=== PATIENT | female | born 1945 | race Caucasian/White ===

== ENCOUNTER 2021-10-15 09:02 | Outpatient (REF) | payer MEDICARE, SELFPAY ==
[2021-10-15 09:59] LABS: Hematocrit 42.4 % (37.0-47.0); Hemoglobin 14.5 g/dl (12.0-16.0); Mean Corpuscular HGB Conc 34.2 g/dl (31.0-35.0); Mean Corpuscular Hemoglobin 31.9 pg (27.0-33.0); Mean Corpuscular Volume 93.2 fL (80.0-98.0); Mean Platelet Volume 10.8 fL (9.4-12.3); Platelet Count 230 X10*3/uL (160-400); Red Blood Count 4.55 X10*6/uL (4.20-5.50); White Blood Count 7.4 X10*3/uL (4.8-10.8)
[2021-10-15 10:30] LABS: Alanine Aminotransferase 28 U/L (0-31); Albumin Level 4.2 g/dL (3.5-5.0); Alkaline Phosphatase 44 U/L (39-117); Anion Gap 12 (12-20); Aspartate Amino Transferase 25 U/L (5-31); Bilirubin Total 0.5 mg/dL (0.0-1.0); Blood Urea Nitrogen 16 mg/dL (9-16); Calcium 9.7 mg/dL (8.4-10.2); Carbon Dioxide 29 mmol/L (22-29); Chloride 104 mmol/L (96-108); Cholesterol 246 mg/dL; Estimated Glomerular Filt Rate > 60; Glucose Random 143 mg/dL (60-115); HDL Cholesterol 48 mg/dL; Iron 219 mcg/dL (30-160); LDL Cholesterol Calculated 157 mg/dl; Percent Iron Saturation 79 % (15-50); Sodium 141 mmol/L (135-145); Total Iron Binding Capacity 277 mcg/dL (228-428); Total Protein 7.2 g/dL (6.5-8.0); Triglycerides 206 mg/dL; Unsaturated Iron Binding 58 ug/dL
[2021-10-15 10:53] LABS: Ferritin 219 ng/mL (10-250); TSH reflex Free T4 2.04 uIU/mL (0.32-4.0)
[2021-10-15 11:20] LABS: Creatinine Urine 197.32 mg/dL; Microalbum/Creatinine Ratio Ur 9.1 ug/mg cr
== END 2021-10-15 09:03 | disposition home or self-care (01) ==
LOC: HO.LAB 09:02
PROVIDERS: PCP Internal Medicine; Visit Provider Internal Medicine
DX: Z00.00 Encounter for general adult medical examination without abnormal findings (principal); E11.9 Type 2 diabetes mellitus without complications; R53.83 Other fatigue; E83.110 Hereditary hemochromatosis
CPT/HCPCS: 36415; 80053; 80061; 82043; 82728; 83540; 84443; 85027

== ENCOUNTER 2021-11-15 15:51 | Outpatient (REF) | payer MEDICARE, SELFPAY ==
--- NOTE | ~2021-11-15 | MM_ITS ---
EXAMINATION: MM SCREENING DIGITAL BREAST TOMOSYNTHESIS, BILATERAL CLINICAL INFORMATION: Screening. Asymptomatic. The lifetime risk of breast cancer based on the Tyrer-Cuzick Model is 3.4%. COMPARISON: Mammography: March 05, 2020 and studies dating back to April 15, 2008 TECHNIQUE: Digital breast tomosynthesis is performed in both the craniocaudal and mediolateral oblique views along with computer-aided detection (CAD). Synthesized 2D images are generated from the tomosynthesis. FINDINGS: There are scattered areas of fibroglandular density (ACR BI-RADS breast composition Category b). There are no significant masses, abnormal calcifications, or other abnormalities. MM/MM tomosynthesis screening BI IMPRESSION: There are no significant changes from prior study. ASSESSMENT: BI-RADS 1: Negative RECOMMENDATION: Routine annual mammography screening. This patient's information was entered into a reminder system with a target due date for their next mammogram.
== END 2021-11-15 15:52 | disposition home or self-care (01) ==
LOC: HO.MAMMO 15:51
PROVIDERS: PCP Internal Medicine; Visit Provider Internal Medicine
DX: Z12.31 Encounter for screening mammogram for malignant neoplasm of breast (principal)
CPT/HCPCS: 77063; 77067

== ENCOUNTER 2021-11-22 18:09 | Emergency (ER) | payer MEDICARE, SELFPAY ==
--- NOTE | ~2021-11-22 | XR_ITS ---
EXAMINATION: XR SHOULDER, RIGHT CLINICAL INFORMATION: Fell, pain. COMPARISON: None TECHNIQUE: Three views of the right shoulder. FINDINGS: There is an impacted and mildly displaced fracture of the right humeral neck. The humeral head remains well-seated in the glenoid. The AC joint is intact except for degenerative osteoarthritis. The visualized right-sided clavicle and right-sided ribs are within normal limits. There is nonspecific interstitial thickening in the imaged right lung. There is soft tissue swelling around the fracture site. XR/XR shoulder RT min 2V IMPRESSION: Right humeral neck fracture as above.
--- NOTE | ~2021-11-22 | XR_ITS ---
EXAMINATION: XR ELBOW, RIGHT CLINICAL INFORMATION: Fall, pain. COMPARISON: None TECHNIQUE: AP, lateral, and oblique views of the right elbow. FINDINGS: No acute fractures or malalignment. Multifocal enthesophytes and degenerative osteoarthritis. No unexpected radiopaque foreign bodies. Evaluation of joint effusions is somewhat suboptimal due to limited crosstable lateral view. XR/XR elbow RT 2V IMPRESSION: No acute fractures or malalignment.
[2021-11-22 18:41] VITALS: BP 153/69; PULSE 75; RESP 18; TEMP 36.9; O2SAT 93; BMI 32.9
--- NOTE | 2021-11-22 19:59 | PC.NURSE ---
patient transported from waiting room to [facility] with use of wheel chair . transferred by 1 assist to bed , guarding left arm . required assitance changing into a amanda . daughter at bedside
--- NOTE | 2021-11-22 20:00 | ED_ITS ---
HPI - Extremity Problem General Chief complaint: Extremity Injury, Upper Stated complaint: fell downstairs fell on right arm Source: patient Mode of arrival: ambulatory Limitations: no limitations History of Present Illness HPI Narrative: 76-year-old female presents after a fall injury. Patient slipped down 1 step going into her basement and landed on her right arm. Is complaining of right humerus pain. Patient did not hit her head or lose consciousness. Did not experience any prodromal events prior to the fall. MD Complaint: extremity pain Onset (ago): hour(s) (Within the hour of arrival) Pain Consistency: constant Location: right and upper extremity Severity scale (1-10): 8 Quality: aching Radiation: proximal Relieving factors: cold therapy and immobilization Exacerbating factors: range of motion and palpation Associated symptoms: denies other symptoms Related Data Previous Rx's Medication Instructions Recorded oxycodone 5 mg tablet 5 mg PO Q4H PRN 3 Days #18 tab 11/22/21 Allergies Allergy/AdvReac Type Severity Reaction Status Date / Time No Known Allergies Allergy Unverified 05/14/20 16:48 Review of Systems Review of Systems: Constitutional: No Fever, No Chills ENT/Mouth: No Ear Pain, No Hoarseness, No sore throat Eyes: No Eye Pain, No Swelling, No Redness, No Foreign Body Cardiovascular: No Chest Pain, No SOB Respiratory: No Cough, No Dyspnea Gastrointestinal: No Nausea, No Vomiting, No Diarrhea, No abdominal Pain Genitourinary: No Dysuria, No Hematuria Musculoskeletal: positive right arm pain, No Myalgias, No Joint Swelling Skin: No Skin lacerations, No rash Neuro: No Weakness, No Numbness, No Paresthesias, No Loss of Consciousness, No Dizziness, No Headache Psych: No Anxiety/Panic, No Depression Heme/Lymph: no easy bruising, no Lymphadenopathy Endocrine: No Polyuria, No Polydipsia Yes all other systems are reviewed and are negative [facility] Past Medical History Attestation statement: The following information was validated with the patient. Source: old records reviewed Social History Social History Advance Directives: No Advance Directives Information Provided: No Physical Exam Vital Signs: Vital Signs: Last Vital Signs Temp 98.4 F 11/22/21 18:41 Pulse 75 11/22/21 18:41 Resp 18 11/22/21 18:41 BP 153/69 H 11/22/21 18:41 Pulse Ox 93 11/22/21 18:41 BMI result Body Mass Index 32.9 Appearance: Alert. Oriented X3. Mild distress. Eyes: Pupils equal, round and reactive to light. ENT: Pharynx normal. Neck: Normal inspection. Neck supple. CVS: Normal heart rate and rhythm. Pulses normal. Respiratory: No respiratory distress. Breath sounds normal. Abdomen: Soft and nontender. Skin: Skin warm and dry. Normal skin color. Normal skin turgor. Extremities: Brisk capillary refill equal pulses to the extremities. Has full range of motion to digits, wrist and elbow, has pain in the upper arm when moving or squeezing. no visible deformity. No tenderness to the clavicle. Decreased right shoulder range of motion Neuro: No motor deficit. No sensory deficit. Cranial nerves 2-12 intact. Course Course Course Narrative: 76-year-old female presents with a FOOSH injury. Patient slipped down 1 step, does not report any head injury or prodromal symptoms. No crepitus or joint deformity noted to extremities. No chest wall tenderness to palpation. Right h umerus is tender, patient does have tenderness on range of motion to the right upper extremity. Will order x-rays. Will update Tdap vaccine and give oxycodone 5 mg for pain management. 21:56 x-rays indicate right humeral head fracture. Discussion with Dr. Hernandez. Plan of care is for patient follow-up in the office. Will sling and swathe. Patient will go home to her daughter's home.Patient verbalized understanding of and agrees to plan of care to discharge home. Verbalized understanding of signs and symptoms indicating need for emergent intervention Consultations Consultation #1: Mary Time: 21:56 MDM - Extremity (Nontraumatic) MDM Narrative Medical decision making narrative: Fracture, dislocation, tendon injury Medical Records Attestation: I reviewed the patient's medical records. Imaging Data Shoulder humerus and elbow x-ray: Attestation: I personally reviewed and interpreted this imaging study as follows: Radiologist's impression: EXAMINATION: XR SHOULDER, RIGHT CLINICAL INFORMATION: Fell, pain.? COMPARISON: None? TECHNIQUE: Three views of the right shoulder. FINDINGS: There is an impacted and mildly displaced fracture of the right humeral neck. The humeral head remains well-seated in the glenoid. The AC joint is intact except for degenerative osteoarthritis. The visualized right-sided clavicle and right-sided ribs are within normal limits. There is nonspecific interstitial thickening in the imaged right lung. There is soft tissue swelling around the fracture site.? XR/XR shoulder RT min 2V IMPRESSION: Right humeral neck fracture as above. EXAMINATION: XR ELBOW, RIGHT CLINICAL INFORMATION: Fall, pain.? COMPARISON: None? TECHNIQUE: AP, lateral, and oblique views of the right elbow. FINDINGS: No acute fractures or malalignment. Multifocal enthesophytes and degenerative osteoarthritis. No unexpected radiopaque foreign bodies. Evaluation of joint effusions is somewhat suboptimal due to limited crosstable lateral view.? XR/XR elbow RT 2V IMPRESSION: No acute fractures or malalignment. Discharge Plan Discharge Clinical Impression: Fracture of head of humerus Patient Disposition: Home, Self-Care Instructions: Arm Fracture in Adults (ED), How to Use a Sling (ED) Additional Instructions: You were evaluated for injury sustained from a fall. You have a right humerus fracture. Please keep sling and swathe and place. Follow-up with orthopedics. I have referred you to Dr. Hernandez. Take oxycodone 5 mg every 4-6 hours as needed for pain management. This medication is a narcotic and has high risk for addiction and abuse. Do not drive or operate machinery while taking this medication. This medication can delay reaction time, increased risk for falls, and cause drowsiness. This medication is also constipating. Please drink plenty of fluids and use Colace and or MiraLax as needed to help soften stools. Thank you for choosing this emergency department for evaluation. Please follow-up with primary care physician as needed. Return to the emergency department for any new, concerning, or worsening symptoms. Prescriptions: New oxycodone 5 mg tablet 5 mg PO Q4H PRN (Reason: pain) 3 Days Qty: 18 0RF Rx Instructions: Right humeral head fracture. Referrals: Edil Hernandez MD [Physician] - 2 days (Right humeral head fracture)
[2021-11-22] MEDS: oxyCODONE HCl Immed Release 5 MG TABLET PO ×2 (20:11→22:17)
[2021-11-22] MEDS: Diphth,Pertus(ACell),Tet Adult 0.5 ML SYRINGE IM (20:11)
== END 2021-11-22 22:33 | disposition home or self-care (01) ==
PROVIDERS: Emergency Provider Emergency Medicine; PCP Internal Medicine
DX: S42.291A Other displaced fracture of upper end of right humerus, initial encounter for closed fracture (principal); W10.8XXA Fall (on) (from) other stairs and steps, initial encounter; Y93.89 Activity, other specified; Y92.018 Other place in single-family (private) house as the place of occurrence of the external cause; Y99.9 Unspecified external cause status
CPT/HCPCS: 73030; 73070; 90471; 90715; 99284

== ENCOUNTER 2022-01-21 09:16 | Outpatient (REF) | payer MEDICARE, SELFPAY ==
[2022-01-21 09:54] LABS: MANUAL DIFF FLAG NO
[2022-01-21 09:56] LABS: Basophils Absolute Auto 0.1 X10*3/uL (0.0-0.2); Basophils Percent Auto 0.7 % (0-2); Eosinophils Absolute Auto 0.4 X10*3/uL (0.0-0.4); Eosinophils Percent Auto 5.8 % (0-4); Hematocrit 39.5 % (37.0-47.0); Hemoglobin 13.8 g/dl (12.0-16.0); Imm Gran Abs Auto 0.02 X10*3/uL (0.00-0.03); Imm Gran Pct Auto 0.3 % (0.0-0.4); Lymphocytes Absolute Auto 2.7 X10*3/uL (1.2-4.9); Lymphocytes Percent Auto 36.4 % (20-40); Mean Corpuscular HGB Conc 34.9 g/dl (31.0-35.0); Mean Corpuscular Hemoglobin 32.2 pg (27.0-33.0); Mean Corpuscular Volume 92.1 fL (80.0-98.0); Mean Platelet Volume 10.4 fL (9.4-12.3); Monocytes Absolute Auto 0.6 X10*3/uL (0.1-1.2); Monocytes Percent Auto 7.9 % (2-11); Neutrophils Absolute Auto 3.6 x10*3/uL (2.0-8.3); Neutrophils Percent Auto 48.9 % (45-73); Platelet Count 235 X10*3/uL (160-400); Red Blood Count 4.29 X10*6/uL (4.20-5.50); Red Cell Distribution Width 12.3 % (11.0-16.0); White Blood Count 7.4 X10*3/uL (4.8-10.8)
[2022-01-21 10:19] LABS: Alanine Aminotransferase 23 U/L (0-31); Albumin Level 4.2 g/dL (3.5-5.0); Alkaline Phosphatase 56 U/L (39-117); Anion Gap 13 (12-20); Aspartate Amino Transferase 23 U/L (5-31); Bilirubin Total 0.5 mg/dL (0.0-1.0); Blood Urea Nitrogen 15 mg/dL (9-16); Calcium 9.7 mg/dL (8.4-10.2); Carbon Dioxide 28 mmol/L (22-29); Chloride 104 mmol/L (96-108); Estimated Glomerular Filt Rate > 60; Glucose Random 172 mg/dL (60-115); Iron 179 mcg/dL (30-160); Percent Iron Saturation 64 % (15-50); Potassium 3.4 mmol/L (3.3-5.1); Sodium 142 mmol/L (135-145); Total Iron Binding Capacity 279 mcg/dL (228-428); Total Protein 7.3 g/dL (6.5-8.0); Unsaturated Iron Binding 100 ug/dL
[2022-01-21 10:38] LABS: Ferritin 256 ng/mL (10-250)
== END 2022-01-21 09:17 | disposition home or self-care (01) ==
LOC: HO.BBR 09:16
PROVIDERS: Visit Provider Internal Medicine Medical Oncology
DX: E83.110 Hereditary hemochromatosis (principal)
CPT/HCPCS: 36415; 80053; 82105; 82728; 83540; 85025

== ENCOUNTER → 2022-01-21 10:35 | Outpatient (BNV) | payer MEDICARE, SELFPAY | PROVIDERS: PCP Internal Medicine; Visit Provider Internal Medicine Medical Oncology | DX: E83.119 Hemochromatosis, unspecified (principal) | CPT/HCPCS: 99204; 99213 ==

== ENCOUNTER 2022-04-04 07:45 | Outpatient (REF) | payer MEDICARE, SELFPAY ==
[2022-04-04 08:47] LABS: Alanine Aminotransferase 23 U/L (0-31); Albumin Level 4.3 g/dL (3.5-5.0); Alkaline Phosphatase 45 U/L (39-117); Anion Gap 15 (12-20); Aspartate Amino Transferase 23 U/L (5-31); Bilirubin Total 0.7 mg/dL (0.0-1.0); Blood Urea Nitrogen 16 mg/dL (9-16); Calcium 9.2 mg/dL (8.4-10.2); Carbon Dioxide 25 mmol/L (22-29); Chloride 103 mmol/L (96-108); Cholesterol 150 mg/dL; Estimated Glomerular Filt Rate > 60; Glucose Random 152 mg/dL (60-115); HDL Cholesterol 44 mg/dL; LDL Cholesterol Calculated 79 mg/dl; Potassium 3.8 mmol/L (3.3-5.1); Sodium 139 mmol/L (135-145); Total Protein 7.4 g/dL (6.5-8.0); Triglycerides 135 mg/dL
[2022-04-04 09:10] LABS: Ferritin 178 ng/mL (10-250)
== END 2022-04-04 07:46 | disposition home or self-care (01) ==
LOC: HO.LAB 07:45
PROVIDERS: PCP Internal Medicine; Visit Provider Internal Medicine
DX: Z00.00 Encounter for general adult medical examination without abnormal findings (principal); E78.00 Pure hypercholesterolemia, unspecified
CPT/HCPCS: 36415; 80053; 80061; 82728

== ENCOUNTER 2022-06-30 11:29 | Outpatient (REF) | payer MEDICARE, SELFPAY ==
[2022-06-30 11:52] LABS: MANUAL DIFF FLAG NO
[2022-06-30 11:55] LABS: Basophils Absolute Auto 0.1 X10*3/uL (0.0-0.2); Basophils Percent Auto 0.9 % (0-2); Eosinophils Absolute Auto 0.4 X10*3/uL (0.0-0.4); Eosinophils Percent Auto 3.9 % (0-4); Hematocrit 41.1 % (37.0-47.0); Hemoglobin 14.2 g/dl (12.0-16.0); Imm Gran Abs Auto 0.02 X10*3/uL (0.00-0.03); Imm Gran Pct Auto 0.2 % (0.0-0.4); Lymphocytes Absolute Auto 3.1 X10*3/uL (1.2-4.9); Lymphocytes Percent Auto 32.9 % (20-40); Mean Corpuscular HGB Conc 34.5 g/dl (31.0-35.0); Mean Corpuscular Hemoglobin 31.6 pg (27.0-33.0); Mean Corpuscular Volume 91.5 fL (80.0-98.0); Mean Platelet Volume 10.5 fL (9.4-12.3); Monocytes Absolute Auto 0.7 X10*3/uL (0.1-1.2); Monocytes Percent Auto 7.2 % (2-11); Neutrophils Absolute Auto 5.2 x10*3/uL (2.0-8.3); Neutrophils Percent Auto 54.9 % (45-73); Platelet Count 249 X10*3/uL (160-400); Red Blood Count 4.49 X10*6/uL (4.20-5.50); Red Cell Distribution Width 12.3 % (11.0-16.0); White Blood Count 9.4 X10*3/uL (4.8-10.8)
[2022-06-30 12:48] LABS: Alanine Aminotransferase 22 U/L (0-31); Albumin Level 4.4 g/dL (3.5-5.0); Alkaline Phosphatase 54 U/L (39-117); Anion Gap 17 (12-20); Aspartate Amino Transferase 22 U/L (5-31); Bilirubin Total 0.6 mg/dL (0.0-1.0); Blood Urea Nitrogen 18 mg/dL (9-16); Calcium 9.9 mg/dL (8.4-10.2); Carbon Dioxide 27 mmol/L (22-29); Chloride 101 mmol/L (96-108); Estimated Glomerular Filt Rate > 60; Glucose Fasting 170 mg/dL (60-99); Iron 165 mcg/dL (30-160); Percent Iron Saturation 54 % (15-50); Potassium 3.8 mmol/L (3.3-5.1); Sodium 141 mmol/L (135-145); Total Iron Binding Capacity 305 mcg/dL (228-428); Total Protein 7.6 g/dL (6.5-8.0); Unsaturated Iron Binding 140 ug/dL
[2022-06-30 13:08] LABS: Ferritin 226 ng/mL (10-250)
== END 2022-06-30 11:30 | disposition home or self-care (01) ==
LOC: HO.BBR 11:29
PROVIDERS: Visit Provider Internal Medicine Medical Oncology
DX: E83.110 Hereditary hemochromatosis (principal)
CPT/HCPCS: 36415; 80053; 82728; 83540; 85025

== ENCOUNTER 2023-05-10 11:00 | Outpatient (REF) | payer MEDICARE, SELFPAY ==
[2023-05-12 11:49] LABS: Alpha Fetoprotein 2.7 ng/mL
== END 2023-05-10 11:01 | disposition home or self-care (01) ==
LOC: HO.BBR 11:00
PROVIDERS: PCP Internal Medicine; Visit Provider Internal Medicine Medical Oncology
DX: E83.110 Hereditary hemochromatosis (principal)
CPT/HCPCS: 36415; 82105

== ENCOUNTER 2023-06-29 10:55 | Outpatient (REF) | payer MEDICARE, SELFPAY | END 2023-06-29 10:56 | disposition home or self-care (01) | LOC: HO.BBR 10:55 | PROVIDERS: Visit Provider Internal Medicine Medical Oncology | DX: Z13.89 Encounter for screening for other disorder (principal) ==

== ENCOUNTER 2023-08-01 11:19 | Outpatient (REF) | payer MEDICARE, SELFPAY | END 2023-08-01 11:20 | disposition home or self-care (01) | LOC: HO.BBR 11:19 | PROVIDERS: PCP Internal Medicine; Visit Provider Internal Medicine Medical Oncology | DX: Z13.89 Encounter for screening for other disorder (principal) ==

== ENCOUNTER 2023-09-01 11:28 | Outpatient (REF) | payer MEDICARE, SELFPAY | END 2023-09-01 11:29 | disposition home or self-care (01) | LOC: HO.BBR 11:28 | PROVIDERS: PCP Internal Medicine; Visit Provider Internal Medicine Medical Oncology | DX: Z13.89 Encounter for screening for other disorder (principal) ==

== ENCOUNTER 2024-03-08 10:17 | Outpatient (REF) | payer MEDICARE, SELFPAY ==
[2024-03-08 10:43] LABS: MANUAL DIFF FLAG NO
[2024-03-08 11:57] LABS: Basophils Absolute Auto 0.1 X10*3/uL (0.0-0.2); Basophils Percent Auto 0.8 % (0-2); Eosinophils Absolute Auto 0.3 X10*3/uL (0.0-0.4); Eosinophils Percent Auto 3.9 % (0-4); Hematocrit 39.7 % (37.0-47.0); Hemoglobin 13.8 g/dl (12.0-16.0); Imm Gran Abs Auto 0.03 X10*3/uL (0.00-0.03); Imm Gran Pct Auto 0.4 % (0.0-0.4); Lymphocytes Absolute Auto 2.9 X10*3/uL (1.2-4.9); Lymphocytes Percent Auto 35.2 % (20-40); Mean Corpuscular HGB Conc 34.8 g/dl (31.0-35.0); Mean Corpuscular Hemoglobin 31.9 pg (27.0-33.0); Mean Corpuscular Volume 91.9 fL (80.0-98.0); Mean Platelet Volume 11.2 fL (9.4-12.3); Monocytes Absolute Auto 0.6 X10*3/uL (0.1-1.2); Monocytes Percent Auto 7.3 % (2-11); Neutrophils Absolute Auto 4.3 x10*3/uL (2.0-8.3); Neutrophils Percent Auto 52.4 % (45-73); Platelet Count 237 X10*3/uL (160-400); Red Blood Count 4.32 X10*6/uL (4.20-5.50); Red Cell Distribution Width 12.5 % (11.0-16.0); White Blood Count 8.3 X10*3/uL (4.8-10.8)
[2024-03-08 12:03] LABS: Estimated Average Glucose 163 mg/dL; Hemoglobin A1c % 7.3 % (<6.0)
[2024-03-08 12:31] LABS: Microalbum/Creatinine Ratio Ur 11.9 ug/mg cr (<30)
[2024-03-08 12:42] LABS: Alanine Aminotransferase 17 U/L (0-31); Albumin Level 4.1 g/dL (3.5-5.0); Alkaline Phosphatase 48 U/L (39-117); Anion Gap 12 (12-20); Aspartate Amino Transferase 18 U/L (5-31); Bilirubin Total 0.6 mg/dL (0.0-1.0); Blood Urea Nitrogen 23 mg/dL (9-16); Calcium 9.7 mg/dL (8.4-10.2); Carbon Dioxide 29 mmol/L (22-29); Chloride 104 mmol/L (96-108); Cholesterol 160 mg/dL (<200); Estimated Glomerular Filt Rate > 60; Glucose Random 161 mg/dL (60-115); Iron 195 mcg/dL (30-160); Percent Iron Saturation 72 % (15-50); Potassium 3.5 mmol/L (3.3-5.1); Sodium 141 mmol/L (135-145); Total Iron Binding Capacity 272 mcg/dL (228-428); Total Protein 7.3 g/dL (6.5-8.0); Unsaturated Iron Binding 77 ug/dL
[2024-03-08 12:56] LABS: Ferritin 85 ng/mL (10-250)
== END 2024-03-08 10:18 | disposition home or self-care (01) ==
LOC: HO.LAB 10:17
PROVIDERS: PCP Internal Medicine; Visit Provider Internal Medicine
DX: E11.9 Type 2 diabetes mellitus without complications (principal); I10 Essential (primary) hypertension; E83.110 Hereditary hemochromatosis; E78.2 Mixed hyperlipidemia
CPT/HCPCS: 36415; 80053; 82043; 82465; 82570; 82728; 83036; 83540; 85025

== ENCOUNTER 2024-06-21 11:05 | Outpatient (REF) | payer MEDICARE, SELFPAY | END 2024-06-21 11:06 | disposition home or self-care (01) | LOC: HO.BBR 11:05 | PROVIDERS: PCP Internal Medicine; Visit Provider Internal Medicine Medical Oncology | DX: Z13.89 Encounter for screening for other disorder (principal) ==

== ENCOUNTER 2024-08-29 11:17 | Outpatient (REF) | payer MEDICARE, SELFPAY ==
[2024-08-29 11:27] LABS: MANUAL DIFF FLAG NO
[2024-08-29 11:29] LABS: Basophils Absolute Auto 0.1 X10*3/uL (0.0-0.2); Basophils Percent Auto 0.9 % (0-2); Eosinophils Absolute Auto 0.4 X10*3/uL (0.0-0.4); Eosinophils Percent Auto 4.2 % (0-4); Hematocrit 41.6 % (37.0-47.0); Hemoglobin 14.5 g/dl (12.0-16.0); Imm Gran Abs Auto 0.03 X10*3/uL (0.00-0.03); Imm Gran Pct Auto 0.3 % (0.0-0.4); Lymphocytes Absolute Auto 3.3 X10*3/uL (1.2-4.9); Mean Corpuscular HGB Conc 34.9 g/dl (31.0-35.0); Mean Corpuscular Hemoglobin 32.2 pg (27.0-33.0); Mean Corpuscular Volume 92.4 fL (80.0-98.0); Mean Platelet Volume 10.4 fL (9.4-12.3); Monocytes Absolute Auto 0.6 X10*3/uL (0.1-1.2); Monocytes Percent Auto 6.5 % (2-11); Neutrophils Absolute Auto 4.6 x10*3/uL (2.0-8.3); Neutrophils Percent Auto 51.1 % (45-73); Platelet Count 255 X10*3/uL (160-400); Red Cell Distribution Width 12.1 % (11.0-16.0)
[2024-08-29 12:04] LABS: Iron 152 mcg/dL (30-160); Percent Iron Saturation 53 % (15-50); Total Iron Binding Capacity 286 mcg/dL (228-428); Unsaturated Iron Binding 134 ug/dL
[2024-08-29 12:20] LABS: Ferritin 68 ng/mL (10-250)
== END 2024-08-29 11:18 | disposition home or self-care (01) ==
LOC: HO.BBR 11:17
PROVIDERS: PCP Internal Medicine; Visit Provider Hospitalist
DX: E83.110 Hereditary hemochromatosis (principal)
CPT/HCPCS: 36415; 82728; 83540; 85025

== ENCOUNTER 2024-10-31 10:59 | Outpatient (REF) | payer MEDICARE, SELFPAY ==
[2024-10-31 11:20] LABS: MANUAL DIFF FLAG NO
[2024-10-31 11:22] LABS: Basophils Absolute Auto 0.1 X10*3/uL (0.0-0.2); Basophils Percent Auto 0.6 % (0-2); Eosinophils Absolute Auto 0.4 X10*3/uL (0.0-0.4); Eosinophils Percent Auto 4.8 % (0-4); Hematocrit 39.7 % (37.0-47.0); Hemoglobin 13.9 g/dl (12.0-16.0); Imm Gran Abs Auto 0.02 X10*3/uL (0.00-0.03); Imm Gran Pct Auto 0.2 % (0.0-0.4); Lymphocytes Absolute Auto 2.9 X10*3/uL (1.2-4.9); Mean Corpuscular Hemoglobin 32.1 pg (27.0-33.0); Mean Corpuscular Volume 91.7 fL (80.0-98.0); Mean Platelet Volume 10.9 fL (9.4-12.3); Monocytes Absolute Auto 0.6 X10*3/uL (0.1-1.2); Monocytes Percent Auto 7.5 % (2-11); Neutrophils Absolute Auto 4.3 x10*3/uL (2.0-8.3); Neutrophils Percent Auto 51.9 % (45-73); Platelet Count 206 X10*3/uL (160-400); Red Blood Count 4.33 X10*6/uL (4.20-5.50); Red Cell Distribution Width 12.2 % (11.0-16.0); White Blood Count 8.3 X10*3/uL (4.8-10.8)
[2024-10-31 12:14] LABS: Iron 142 mcg/dL (30-160); Percent Iron Saturation 48 % (15-50); Total Iron Binding Capacity 293 mcg/dL (228-428); Unsaturated Iron Binding 151 ug/dL
[2024-10-31 12:30] LABS: Ferritin 42 ng/mL (10-250)
--- OUTSIDE RECORDS SUMMARY | 2024-10-31 13:24 | XMS_ITS | Data Portability ---
Author Organization [place] - [facility], Allergy Address [address] [address] Care Team Providers Care Train Conductor Name Role Phone SARA TURPIN Primary Care Provider Assessment Encounter Date Assessment Date Assessment LastModified by Organization Details LastModified Time 09/13/2024 09/13/2024 79-year-old female presents for cerumen removal. Cerumen removed bilaterally. TMs normal to inspection. Follow-up in 6 months. [email or web address] Not available 09/13/2024 14:03:24 Plan of Treatment Reminders Order Date Submit Date Provider Last Modified By Organization Details Last Modified Time Details Appointments Establish ed 15 2024 01:00P M SHAKIR HASKINS PA-C Not available Not available Not available Lab None recorded. Referral None recorded. Procedures None recorded. Surgeries None recorded. Imaging None recorded. Medication Orders None recorded. Patient TargetsNo targets recorded. Patient InstructionsNo instructions recorded. Reason for Referral None Reported. Problems Name Problem SNOMED Code Status Onset Date Resolution Date Notes Provider Name and Address Organization Details Recorded Time Impacted cerumen of bilateral ears 22704347853 73521 Active 2022 Impacted cerumen, bilateral ; Note: Date Diagnosed : 10/26/2022 11:26 AM (H61.23) Not Available [facility] 02:48:46 Chronic pansinusi tis 68952238 Active 2022 Chronic pansinusi tis; Note: Date Diagnosed : 10/26/2022 11:26 AM (J32.4) Not Available [facility] 02:48:47 Sensorine ural hearing loss of bilateral ears 294017808 Active 2022 Sensorine ural hearing loss, bilateral ; Note: Date Diagnosed : 10/26/2022 11:34 AM (H90.3) Not Available [facility] 4 02:48:43 Bilateral disorder of Eustachia n tubes 57134898046 27231 Active 2022 Other specified disorders of Eustachia n tube, bilateral ; Note: Date Diagnosed : 10/26/2022 11:26 AM (H69.83) Not Available [facility] 4 02:48:43 Problem Notes None recorded. Procedures Surgical History Date Name Laterality Status Provider Name and Address Organization Details Recorded Time Cerumen removal without microscope bilat completed SHAKIR HASKINS PA-C [address] [place] [address],[address], [address], [place] - [facility] 09/13/2024 14:03:11 Imaging Results None recorded. Procedure Notes None recorded. Medical Equipment None Reported. Medications Name Sig Start Date Stop Date Status Note LastModified by Organization Details LastModified Time losartan 50 mg tablet TAKE 1 TABLET DAILY active Not Available Not Available No t Available atorvasta tin 40 mg tablet TAKE 1 TABLET ONCE DAILY active Not Available Not Available No t Available cilostazo l 100 mg tablet active Medicati on ID: [id number] B rand Name: cilostaz ol Send Method: E-Prescr ibed Sub s Allowed: subs OK Speci al Instruct ion: TAKE 1 TABLET BY MOUTH DAILY Me dication GenericN zachary: cilostaz ol Not Available Not Available Not Available azithromy kaycee 250 mg tablet active Medicati on ID: [id number] B rand Name: azithrom ycin Sen d Method: E-Prescr ibed Sub s Allowed: subs OK Medic ationGen ericName : azithrom ycin Not Available Not Available Not Available atenolol 25 mg tablet TAKE 1 TABLET DAILY DIRECTED active Not Available Not Available No t Available travopros t 0.004 % eye drops INSTILL 1 DROP IN EACH EYE DAILY active Not Available Not Available No t Available Flonase 50 mcg/actua tion nasal spray,avery pension 07/21 completed Medicati on ID: [id number] Pr escribed By Name: Eliugabino gonsales M.D. Bra nd Name: Flonase Send Method: E-Prescr ibed Sub s Allowed: subs OK Speci al Instruct ion: 2 spray each nostril BID Medi cationGe nericNam e: Flonase Not Available Not Available Not Available hydrochlo rothiazid e 25 mg tablet TAKE 1 TABLET EVERY MORNINGA S DIRECTED active Not Available Not Available No t Available calcipotr iene 0.005 % topical ointment active Medicati on ID: [id number] B rand Name: calcipot riene Se nd Method: E-Prescr ibed Sub s Allowed: subs OK Medic ationGen ericName : calcipot riene Not Available Not Available Not Available oxycodone 5 mg tablet active Medicati on ID: [id number] B rand Name: oxycodon e Send Method: E-Prescr ibed Sub s Allowed: subs OK Speci al Instruct ion: TAKE 1 TABLET BY MOUTH EVERY 4 HOURS NEEDED FOR PAIN FOR 3 DAYS Med icationG enericNa me: oxycodon e Not Available Not Available Not Available peg 3350-elec trolytes 236 gram-22.7 4 gram-6.74 gram-5.86 gram solution active Medicati on ID: [id number] B rand Name: peg 3350-kandi ctrolyte s Send Method: E-Prescr ibed Sub s Allowed: subs OK Speci al Instruct ion: MIX WITH WATER AND DRINK DIRECTED ON PACKAGE AND ACCORDIN G TO DIRECTIO NS FROM [facility] Medicat ionGener icName: peg 3350-kandi ctrolyte s Not Available Not Available Not Available Vitals None Recorded Social History None recorded. Functional Status None recorded. Mental Status None recorded. Family History Nothing Reported. Medical History No medical history recorded. Gynecological HistoryNo gynecological history recorded. Obstetrics History GPAL:G 0 P 0 0 0 0 Past Encounters Encounter ID Performer Location Encounter Start Date Encounter Closed Date Diagnosis/Indication Diagnosis SNOMED-CT Code Diagnosis ICD10 Code Diagnosis Note [id number] COLLEEN ROCHA MD [facility] [address] [address] 09/13/2024 13:32:06 09/13/2024 13:52:57 Impacted cerumen of bilateral ears [id number] 206958 H61.23 Sensorineu ral hearing loss of bilateral ears 244650870 H90.3 Health Concerns Section Related Observation LastModified by Organization Detai ls LastModified Time None Recorded Concern Status LastModified by Organization Details LastModified Time None Recorded Advance Directives Directive None Recorded Payers Encounter Date Sequence Insurance Name Policy Number Policy Weir Covered Member ID Weir Member ID Guarantor Name 09/13/2024 2 [place] Callie Fu [id number] Callie Fu 09/13/2024 1 [place]MED[place] PPO) [id number] Callie Fu [id number] Callie Fu Notes Date Note Type Note Provider Name and Address Organization Details Recorded Time 09/13/2024 text/html 79-year-old female presents for cerumen removal. No acute issues since her last visit. COLLEEN ROCHA MD [address] [place] [address], [id number] - [facility] 09/17/2024 08:05:14 OBGyn Episode No OBEpisode recorded.
== END 2024-10-31 11:00 | disposition home or self-care (01) ==
LOC: HO.BBR 10:59
PROVIDERS: Internal Medicine Medical Oncology; PCP Internal Medicine; Visit Provider Hospitalist
DX: E83.110 Hereditary hemochromatosis (principal)
CPT/HCPCS: 36415; 82728; 83540; 85025

== ENCOUNTER 2024-12-31 10:58 | Outpatient (REF) | payer MEDICARE, SELFPAY ==
[2024-12-31 11:18] LABS: MANUAL DIFF FLAG NO
[2024-12-31 11:20] LABS: Basophils Absolute Auto 0.1 X10*3/uL (0.0-0.2); Basophils Percent Auto 0.9 % (0-2); Eosinophils Absolute Auto 0.3 X10*3/uL (0.0-0.4); Eosinophils Percent Auto 4.1 % (0-4); Hematocrit 38.4 % (37.0-47.0); Hemoglobin 13.4 g/dl (12.0-16.0); Imm Gran Abs Auto 0.02 X10*3/uL (0.00-0.03); Imm Gran Pct Auto 0.2 % (0.0-0.4); Lymphocytes Absolute Auto 2.6 X10*3/uL (1.2-4.9); Lymphocytes Percent Auto 32.6 % (20-40); Mean Corpuscular HGB Conc 34.9 g/dl (31.0-35.0); Mean Corpuscular Hemoglobin 30.9 pg (27.0-33.0); Mean Corpuscular Volume 88.7 fL (80.0-98.0); Mean Platelet Volume 10.1 fL (9.4-12.3); Monocytes Absolute Auto 0.5 X10*3/uL (0.1-1.2); Monocytes Percent Auto 6.7 % (2-11); Neutrophils Absolute Auto 4.5 x10*3/uL (2.0-8.3); Neutrophils Percent Auto 55.5 % (45-73); Platelet Count 247 X10*3/uL (160-400); Red Blood Count 4.33 X10*6/uL (4.20-5.50); Red Cell Distribution Width 12.3 % (11.0-16.0); White Blood Count 8.1 X10*3/uL (4.8-10.8)
[2024-12-31 12:11] LABS: Iron 113 mcg/dL (30-160); Percent Iron Saturation 41 % (15-50); Total Iron Binding Capacity 276 mcg/dL (228-428); Unsaturated Iron Binding 163 ug/dL
[2024-12-31 12:20] LABS: Ferritin 37 ng/mL (10-250)
--- OUTSIDE RECORDS SUMMARY | 2024-12-31 12:41 | XMS_ITS | Data Portability ---
Author Organization [place] - [facility], Allergy Address [address] [address] Care Team Providers Care Community Leader Name Role Phone SARA TURPIN Primary Care Provider Assessment Encounter Date Assessment Date Assessment LastModified by Organization Details LastModified Time 09/13/2024 09/13/2024 79-year-old female presents for cerumen removal. Cerumen removed bilaterally. TMs normal to inspection. Follow-up in 6 months. [email or web address] Not available 09/13/2024 14:03:24 Plan of Treatment [...] Recorded Time Impacted cerumen of bilateral ears 67779127395 04900 Active 2022 Impacted cerumen, bilateral ; Note: Date Diagnosed : 10/26/2022 11:26 AM (H61.23) Not [facility] 02:48:46 Chronic pansinusi tis 43148125 Active 2022 Chronic pansinusi tis; Note: Date Diagnosed : 10/26/2022 11:26 AM (J32.4) Not [facility] 02:48:47 Sensorine ural hearing loss of bilateral ears 242262267 Active 2022 Sensorine ural hearing loss, bilateral ; Note: Date Diagnosed : 10/26/2022 11:34 AM (H90.3) Not Available [facility] 4 02:48:43 Bilateral disorder of Eustachia n tubes 30388308204 11902 Active 2022 Other specified disorders of Eustachia n tube, bilateral ; Note: Date Diagnosed : 10/26/2022 11:26 AM (H69.83) Not Available [facility] 4 02:48:43 Problem Notes None recorded. Procedures Surgical History Date Name Laterality Status Provider Name and Address Organization Details Recorded Time Cerumen removal without microscope bilat completed SHAKIR HASKINS PA-C [address] [place] [address],[address], [address], [place] - [facility] 09/13/2024 14:03:11 Imaging Results None recorded. Procedure [...] 100 mg tablet active Medicati on ID: [id number] B rand Name: cilostaz ol Send Method: E-Prescr ibed Sub s Allowed: subs OK Speci al Instruct ion: TAKE 1 TABLET BY MOUTH DAILY Me dication GenericN zachary: cilostaz ol Not Available Not Available Not Available azithromy kaycee 250 mg tablet active Medicati on ID: [id number] B rand Name: azithrom ycin Sen d [...] spray,avery pension 07/21 completed Medicati on ID: [id number] Pr escribed By Name: Eliugabino gonsales M.D. [...] % topical ointment active Medicati on ID: [id number] B rand Name: calcipot riene Se nd Method: E-Prescr ibed Sub s Allowed: subs OK Medic ationGen ericName : calcipot riene Not Available Not Available Not Available oxycodone 5 mg tablet active Medicati on ID: [id number] B rand Name: oxycodon e Send Method: E-Prescr ibed Sub s Allowed: subs OK Speci al Instruct ion: TAKE 1 TABLET BY MOUTH EVERY 4 HOURS NEEDED FOR PAIN FOR 3 DAYS Med icationG enericNa me: oxycodon e Not Available Not Available Not Available peg 3350-elec trolytes 236 gram-22.7 4 gram-6.74 gram-5.86 gram solution active Medicati on ID: [id number] B rand Name: peg 3350-kandi ctrolyte s Send Method: E-Prescr ibed Sub s Allowed: subs OK Speci al Instruct ion: MIX WITH WATER AND DRINK DIRECTED ON PACKAGE AND ACCORDIN G TO DIRECTIO NS FROM [facility] Medicat ionGener icName: peg 3350-kandi ctrolyte s [...] SNOMED-CT Code Diagnosis ICD10 Code Diagnosis Note [id number] SHAKIR HASKINS PA-C [facility] [address] [address] 09/13/2024 13:32:06 09/13/2024 13:52:57 Impacted cerumen of bilateral ears [id number] 289744 H61.23 Sensorineu ral hearing loss of bilateral ears 523214331 H90.3 Health Concerns Section Related Observation LastModified by Organization Detai ls LastModified Time None Recorded Concern Status LastModified by Organization Details LastModified Time None Recorded Advance Directives Directive None Recorded Payers Encounter Date Sequence Insurance Name Policy Number Policy Weir Covered Member ID Weir Member ID Guarantor Name 09/13/2024 2 [place] Callie Fu [id number] Callie Fu 09/13/2024 1 [place]MED[place] PPO) [id number] Callie Fu [id number] Callie Fu Notes Date Note Type Note Provider Name and Address Organization Details Recorded Time 09/13/2024 text/html 79-year-old female presents for cerumen removal. No acute issues since her last visit. COLLEEN ROCHA MD [address] [place] [address], [phone] - [facility] 09/17/2024 08:05:14 OBGyn Episode No OBEpisode recorded.
== END 2024-12-31 10:59 | disposition home or self-care (01) ==
LOC: HO.BBR 10:58
PROVIDERS: PCP Internal Medicine; Visit Provider Internal Medicine Medical Oncology
DX: E83.110 Hereditary hemochromatosis (principal)
CPT/HCPCS: 36415; 82728; 83540; 85025

== ENCOUNTER 2025-04-29 11:10 | Outpatient (REF) | payer MEDICARE, SELFPAY ==
[2025-04-29 11:25] LABS: MANUAL DIFF FLAG NO
[2025-04-29 11:27] LABS: Hematocrit 38.9 % (37.0-47.0); Hemoglobin 13.2 g/dl (12.0-16.0); Imm Gran Abs Auto 0.01 X10*3/uL (0.00-0.03); Imm Gran Pct Auto 0.1 % (0.0-0.4); Lymphocytes Absolute Auto 2.5 X10*3/uL (1.2-4.9); Mean Corpuscular HGB Conc 33.9 g/dl (31.0-35.0); Mean Corpuscular Hemoglobin 29.9 pg (27.0-33.0); Mean Corpuscular Volume 88.0 fL (80.0-98.0); NRBC Abs Auto 0.000 X10*3/uL (0.0-0.012); NRBC Pct Auto 0.0 /100WBC (0.0-0.2); Platelet Count 222 X10*3/uL (160-400); Red Blood Count 4.42 X10*6/uL (4.20-5.50); White Blood Count 7.1 X10*3/uL (4.8-10.8)
[2025-04-29 12:19] LABS: Ferritin 24 ng/mL (10-250); Iron 120 mcg/dL (30-160); Percent Iron Saturation 43 % (15-50); Total Iron Binding Capacity 281 mcg/dL (228-428); Unsaturated Iron Binding 161 ug/dL
--- OUTSIDE RECORDS SUMMARY | 2025-04-29 12:44 | XMS_ITS | Clinical Summary ---
Author Organization [facility] Address [address] [address] Phone Care Team Providers Care Stem Setter Name Role Phone Jose Mosqueda MD Primary Care Provider [phone] Social History Tobacco Use Types Packs/Day Years Used Date Smoking Tobacco: Never Assessed Education Answer Date Recorded Are you interested in more education? Not on susana e 12/23/2022 Are you concerned about learning? Not on file 12/23/2022 No 12/23/2022 No 12/23/2022 Digital Access Answer Date Recorded No 01/21/2023 No 01/21/2023 No 01/21/2023 Reliable internet access at home? Not on file 01/21/2023 Device with a working camera? Not on file Comments Unknown Sex and Gender Information Value Date Recorded Sex Assigned at Not on file Legal Sex Female 10:10 PM EDT Gender Identity Not on file Sexual Orientation Not on file Plan of Treatment Health Maintenance Due Date Last Done Comments Adult Td,Tdap Booster 1943 DEPRESSION SCREENING 1955 ZOSTER VACCINES (1 of 2) 1993 OSTEOPOROSIS SCREENING INITI AL (ONE-TIME) 2008 PNEUMOCOCCAL VACCINES (50+ y ears) (2 of 2 - PPSV23) 05/24/2017 05/24/2016 RSV VACCINE (1 - 1-dose 75+ series) 2018 INFLUENZA VACCINE (#1) 2025 COVID-19 VACCINE (2 - 2024-2 6 season) 2025 10/03/2020 HEPATITIS A VACCINES Aged Out No long er eligible based on patient's age to complete this topic HIB VACCINES Aged Out No longer eligi ble based on patient's age to complete this topic MENINGOCOCCAL VACCINES (ACWY) Aged Out No longer eligible based on patient's age to complete this topic MENINGOCOCCAL VACCINES (B) Aged Out N o longer eligible based on patient's age to complete this topic Medical Devices Not on file Insurance MEDICARE PPO BLUE REPLACEMENT MEDICARE PPO BLUE REPLACEMENT MEDICARE PPO BLUE REPLACEMENT MEDICARE PPO BLUE REPLACEMENT MEDICARE PPO BLUE REPLACEMENT MEDICARE PPO BLUE REPLACEMENT MEDICARE PPO BLUE REPLACEMENT MEDICARE PPO BLUE REPLACEMENT MEDICARE PPO BLUE REPLACEMENT Care Teams Stem Setter Relationship Specialty Start Date End Date Jose Mosqueda MD PCP - General Internal Medicine 03/31/20 Additional Source Comments The information contained in this document represents components of the legal health record. It is not the complete legal health record.[facility]
== END 2025-04-29 11:11 | disposition home or self-care (01) ==
LOC: HO.BBR 11:10
PROVIDERS: PCP Internal Medicine; Visit Provider Internal Medicine Medical Oncology
DX: E83.119 Hemochromatosis, unspecified (principal)
CPT/HCPCS: 36415; 82728; 83540; 85025